=== PATIENT | female | born 1945 | race Caucasian/White ===

== ENCOUNTER 2023-03-24 06:48 | Day surgery (SDC) | payer MEDICARE, OTHER ==
[~2023-03-24] VITALS: Ht 154.9 cm; Wt 75.6 kg
[~2023-03-24 06:48] MED LIST: BUMEX 1MG TA1 MG/TA1 PO; CALCIUM CITRAT200 M2 PO; COENZYME Q-10100 M1 PO; COREG 3.123.125 MG/T PO; DOXYCYCLINE 10100 MG PO; ELIQUIS 5MG PO; FLOMAX 0.40.4 MG/CAP PO; K-DUR20 MEQ PO; LANOXIN 0.120.125 MG PO; LANOXIN 0.25M0.25 MG PO; LYSINE1000 MG PO; MAGNESIUM CITR100 MG PO; MASON NATURAL1200 MG PO; NATURAL E400 IU PO; NORCO 325 MG-51 TAB PO; PACERONE400 MG PO; PHARMASSURE ZIN50 MG PO; PRINIVIL2.5 MG PO; PROBIOTIC ACID1 EAC3 PO; PROTONIX 40MG T40 MG PO; TORADOL 10MG TA10 MG PO; VISION FORMULA1 EAC1 PO; VITAMIN B COMPL1 SGL PO; VITAMIN B12 681 TAB PO; VITAMIN D 50,1.25 MG PO; VITAMINC1000TA PO; ZOFRAN 4MG T4 MG/TAB PO
[2023-03-24 08:36] VITALS: BP 126/46; PULSE 66; TEMP 98.9
[2023-03-24] MEDS ORDERED: TYLENOL 325MG325 MG PO (08:44)
[2023-03-24] MEDS ORDERED: ACIDOPHILIS PO (08:45)
[2023-03-24] MEDS ORDERED: CORDARONE200 MG/TAB PO (08:46)
[2023-03-24] MEDS ORDERED: LEXAPRO 10MG10 MG PO (10:00)
[2023-03-24] MEDS ORDERED: TOPROL XL 25MG25 MG PO (10:01)
[2023-03-24] MEDS ORDERED: ZOFRAN 4MG T4 MG/TAB PO (10:02)
[2023-03-24] MEDS ORDERED: PROTONIX 40MG T40 MG PO (10:04)
[2023-03-24] MEDS ORDERED: NORCO 325 MG-51 TAB PO (10:05)
[2023-03-24] MEDS ORDERED: MACROBID 1100 MG/CAP PO (10:05)
[2023-03-24 11:15] VITALS: BP 105/49; PULSE 60; TEMP 99.2
[2023-03-24 11:30] VITALS: BP 102/45; PULSE 63
[2023-03-24 11:45] VITALS: BP 118/52; PULSE 70
[2023-03-24 12:00] VITALS: BP 102/44; PULSE 65
--- NOTE | 2023-03-24 17:43 | NUR ---
[id number]: PT TO RECOVERY BAY 2 FROM PACU S/P CYSTO, L URETER/LASER/STENT WITH EXTERNAL PULL STRING - SNF ORDERED TO PULL ON 03/29 A&O, PLACED ON MONITOR, VSS ON 2L NC (WEANED TO RA BY MIDDLE OF SDC STAY - VSS ON RA PRIOR TO DC) RECEIVED REPORT AND ASSUMED CARE OF PT FROM SAMUEL MA TO BEDSIDE, SNF TRANSPORT WILL TAKE PT BACK TO SNF/REHAB PROVIDED FOOD/FLUIDS, TOLERATING WELL PT HAS REMAINED A&O, NAD, VSS ON RA, TOLERATING PO, IS WITHOUT SIGNIFICANT COMPLAINT, WITH STEADY GAIT/TRANSFER BY END OF STAY IV D/C'D. D/C INSTRUCTIONS, FOLLOW UP REVIEWED AND HANDED TO PT. ALL QUESTIONS AND CONCERNS ADDRESSED TO PT SATISFACTION. REPORT CALLED TO SNF NURSERICH. TRANSPORT CALLED AND ARRANGED FOR PT P/U TAKEN TO EXIT VIA W/C WITH ALL BELONGINGS AND PAPERWORK IN HAND, CASE WORKER ASSUMED CARE OF PT.
== END 2023-03-24 12:50 ==
LOC: SDCO 06:48
DX: N20.1 Calculus of ureter (principal); Z87.440 Personal history of urinary (tract) infections
CPT/HCPCS: C1769; C2617; J0690; J1100; J2405; J2704; J3010; J7120

== ENCOUNTER 2023-10-02 10:13 | Inpatient (IN) | payer MEDICARE, OTHER ==
[2023-10-02] VITALS (98 sets, daily range): BP systolic 65–121; BP diastolic 21–53; PULSE 60; TEMP 98.4–100; O2SAT 70–100
[~2023-10-02] VITALS: Ht 154.9 cm; Wt 75.5 kg
[~2023-10-02 10:13] MED LIST changes: +ACIDOPHILIS PO; +ALDACTONE 25MG25 M1 PO; +CORDARONE200 MG/TAB PO; +KLOR-CON M2020 MEQ PO; +LASIX 40MG TABL40 MG PO; +LEXAPRO 10MG10 MG PO; +MACROBID 1100 MG/CAP PO; +TOPROL XL 25MG25 MG PO; +TYLENOL 325MG325 MG PO
[2023-10-02 10:48] LABS: COLLECTION METHOD CATHETER
[2023-10-02 11:01] LABS: URINE APPEARANCE TURBID (CLEAR/HAZY); URINE BLOOD 3+ (NEGATIVE); URINE COLOR Dark Yellow (YELLOW); URINE GLUCOSE NEGATIVE (NEGATIVE); URINE KETONE NEGATIVE (NEGATIVE); URINE NITRATE POSITIVE (NEGATIVE); URINE PROTEIN(semi-quant) 2+ (NEGATIVE)
[2023-10-02 11:01] LABS: BASO # 0.1 K/mm3 (0.0-0.2); BASO % 0.5 % (0.0-2.0); EOS % 0.1 % (0.0-4.0); GRAN # 9.4 K/mm3 (1.4-6.5); GRAN % 84.7 % (42.2-75.2); HEMOGLOBIN 10.2 g/dl (12.5-16.0); LYMPH # 0.6 K/mm3 (1.2-3.4); LYMPH % 5.4 % (20.0-51.0); MEAN CELL VOLUME 97 fl (80.0-100.0); MEAN CORPUSCULAR HEMOGLOBIN 29 pg (27-31); MEAN CORPUSCULAR HGB CONC 30 g/dl (33.0-37.0); MEAN PLATELET VOLUME 9.9 fl (7.4-10.4); MONO % 8.9 % (1.7-9.3); PLATELET COUNT 331 K/mm3 (130-400); RED BLOOD COUNT 3.47 M/mm3 (4.10-5.30); REDCELL DISTRIBUTION WIDTH-CV 17.5 % (11.5-14.5)
[2023-10-02 11:11] LABS: HEMATOCRIT 33.7 % (37.0-47.0)
[2023-10-02] MEDS ORDERED: LR 1,000 ML IV ONE (11:15)
[2023-10-02 11:18] LABS: ALBUMIN 2.2 g/dL (3.4-4.8); BILIRUBIN,TOTAL 0.7 mg/dL (0.2-1.2); CALCIUM 9.3 mg/dL (8.4-10.2); CREATININE, serum 1.22 mg/dL (0.57-1.11); POTASSIUM 5.1 mEq/L (3.5-4.5); TOTAL PROTEIN 5.6 g/dl (6.2-8.1)
[2023-10-02 11:26] LABS: URINE CALCIUM OXALATE CRYSTAL PRESENT (NOT PRESENT); URINE RBC 20-50 /hpf (0-2); URINE WBC >50 /hpf (0-2)
[2023-10-02 11:27] LABS: URINE BACTERIA MODERATE /hpf (NONE SEEN)
[2023-10-02 11:38] LABS: TROPONIN-I 0.121 ng/mL (0.00-0.033)
[2023-10-02] MEDS ORDERED: NS 1,000 ML IV ONE (11:45)
[2023-10-02] MEDS ORDERED: cefTRIAXone 1 G in Water For Injection,Sterile 10 ML IV ONE (11:45)
[2023-10-02] MEDS ORDERED: Iohexol 300 - 100 ML VIAL IV ONE (12:04)
[2023-10-02] MEDS ORDERED: NS 100 ML IV SCH (12:05)
[2023-10-02] MEDS ORDERED: *Potassium Replacement Protocol MC SCH (15:00)
--- NOTE | 2023-10-02 15:14 | NUR ---
PATIENT ARRIVED TO ICU VIA BED ACCOMPANIED BY ED RN. PATIENT IS PAIN UPON ARRIVAL BUT NO RESPIRATORY DISTRESS NOTED.
[2023-10-02] MEDS ORDERED: COLACE 100100 MG/CAP PO (15:55)
[2023-10-02] MEDS ORDERED: MIRALAX PA17 GM/Dose PO (15:57)
[2023-10-02] MEDS ORDERED: FLOMAX 0.40.4 MG/CAP PO (15:59)
[2023-10-02] MEDS ORDERED: ROXICODONE 55 MG/TAB PO (16:01)
[2023-10-02] MEDS ORDERED: TYLENOL 325MG325 MG PO (16:02)
[2023-10-02] MEDS ORDERED: Amiodarone 200 MG TAB PO SCH (16:22)
[2023-10-02] MEDS ORDERED: Escitalopram 10 MG TAB PO SCH (16:22)
[2023-10-02] MEDS ORDERED: Apixaban 5 MG TAB PO SCH (16:22)
[2023-10-02] MEDS ORDERED: Spironolactone 25 MG TAB PO SCH (16:23)
[2023-10-02] MEDS ORDERED: NS 1,000 ML IV SCH (16:30)
--- NOTE | 2023-10-02 18:02 | NUR ---
PATIENT ALERT AND ORIENTED X4. SCREAMS OUT IF TOUCHED DUE TO GENERALIZED PAIN. STAGE 2 PRESSURE SORES NOTED TO BOTTOM. GENERALIZED BRUISING PRESENT. CHAVEZ CATHETAR IN PLACE AND DRAINING CLOUDY YELLOW URINE. BED IN LOW POSITION AND CALL LIGHT WITHIN REACH.
[2023-10-02] MEDS ORDERED: Acetaminophen 325 MG TAB PO PRN (21:00)
--- NOTE | 2023-10-02 21:22 | NUR ---
PATIENT LAYING IN BED, ALERT AND CALM. IV IN RIGHT WRIST, PICC LINE TO RIGHT UPPER ARM. CHAVEZ CATHETER IN PLACE AND DRAINING PROPERLY. CAST ON LEFT ARM. NO ACUTE EVENTS.
[2023-10-03] VITALS (141 sets, daily range): BP systolic 68–146; BP diastolic 31–75; PULSE 60–75; TEMP 97.9–98.9; O2SAT 30–100
[2023-10-03 05:52] LABS: ARTERIAL BLD GAS O2 SATURATION 96.9 % (92-100); ARTERIAL BLD GAS TCO2 CT 28.9; ARTERIAL BLOOD GAS BASE EXCESS 1.6 (-2-2); ARTERIAL BLOOD GAS HCO3 27.5 meq/L (22-26); ARTERIAL BLOOD GAS PCO2 48.8 mmHg (35-45); ARTERIAL BLOOD GAS PO2 93.1 mmHg (80-100); ARTERIAL BLOOD GAS pH 7.37 (7.35-7.45)
[2023-10-03 08:25] LABS: BASO # 0.1 K/mm3 (0.0-0.2); BASO % 0.4 % (0.0-2.0); EOS # 0.1 K/mm3 (0.0-0.7); EOS % 0.8 % (0.0-4.0); GRAN # 10.9 K/mm3 (1.4-6.5); GRAN % 82.6 % (42.2-75.2); LYMPH # 0.6 K/mm3 (1.2-3.4); LYMPH % 4.5 % (20.0-51.0); MEAN CELL VOLUME 97 fl (80.0-100.0); MEAN CORPUSCULAR HGB CONC 31 g/dl (33.0-37.0); MEAN PLATELET VOLUME 9.5 fl (7.4-10.4); MONO # 1.5 K/mm3 (0.1-0.6); MONO % 11.2 % (1.7-9.3); PLATELET COUNT 323 K/mm3 (130-400); RED BLOOD COUNT 3.24 M/mm3 (4.10-5.30)
[2023-10-03 08:27] LABS: HEMATOCRIT 31.5 % (37.0-47.0); HEMOGLOBIN 9.6 g/dl (12.5-16.0); MEAN CORPUSCULAR HEMOGLOBIN 30 pg (27-31)
[2023-10-03 08:44] LABS: ALBUMIN 1.9 g/dL (3.4-4.8); CALCIUM 9.1 mg/dL (8.4-10.2); CREATININE, serum 0.82 mg/dL (0.57-1.11); MAGNESIUM 2.1 mg/dL (1.6-2.6); PHOSPHOROUS 3.3 mg/dL (2.3-4.7); POTASSIUM 4.6 mEq/L (3.5-4.5)
[2023-10-03] MEDS ORDERED: cefTRIAXone 1 G in Water For Injection,Sterile 10 ML IV SCH (09:00)
[2023-10-03] MEDS ORDERED: Amiodarone 200 MG TAB PO SCH (09:00)
--- NOTE | 2023-10-03 11:22 | NUR ---
Manager System met with patient to discuss discharge planning. Patient lives in [place] and has been at [facility] for rehab. Patient sees Dr. Cunningham for primary care. Patient advised prior to being at [facility] she was independent with ADLS and did not use any DME. Patient is currently on oxygen but stated she normally does not wear it. Patient advised she was sent to [facility] from [facility] and has been there about 10 days. Patient has DPOA-HC in chart designating her granddaughter, Leatha (ph#[phone]). SW contacted Leatha to review discharge plan to return to [facility]. Leatha advised "this isn't her first rodeo" unfortunately with her grandmother being hospitalized. Leatha advised staff could call her with any needs or questions. YUDY then contacted Juventino at [facility] and sent clinical updates via secure email. Discharge Plan: [facility]
--- NOTE | 2023-10-03 14:00 | NUR ---
PATIENT IS ALERT AND ORIENTED X4. MODERATE GENERALIZED PAIN DESCRIBED BY PATIENT. RIGHT FOREARM PUFFY - PROVIDER AWARE. IV'S ARE PATENT AND DO NOT APPEAR TO BE INFILTRATED. ULTRASOUND PERFORMED TO RULE OUT DVT - ULTRASOUND NEGATIVE. RN WRAPPING RIGHT ARM WITH ANA BANDAGES TO DECREASE SWELLING. LEVOPHED HAS REMAINED OFF SINCE 1100. PATIENT HAS EXORIATION TO COCCYX AND PERINEAL AREA - MEPILEX APPLIED TO BUTTOCKS AND BARRIER CREAM ON OTHER EXCORITATED AREAS. BED IN LOW POSITION AND CALL LIGHT WITHIN REACH. PATIENT DOES NOT HAVE ANY LINGERING QUESTIONS OR NEEDS.
--- NOTE | 2023-10-03 16:31 | NUR ---
PATIENT TRANSFERRED TO MEDICAL FLOOR BED 311 AT THIS TIME. PATIENT REPORT CALLED TO SAMUEL FRANKS, PRIOR TO TRANSFER. PATIENT NOT IN DISTRESS AT THIS TIME. ALERT AND ORIENTED X4.
[2023-10-03] MEDS ORDERED: Acetaminophen 325 MG TAB PO PRN (16:45)
[2023-10-03] MEDS ORDERED: Ondansetron 4 MG/2 ML VIAL IV PRN (16:45)
--- NOTE | 2023-10-03 17:00 | NUR ---
Pt recently arrived to the floor from ICU. Pt is alert and oriented. She has generalized pain. Aquacel to left hip, CDI. Pt has IV to her left wrist and an INT to left AC. Pts right arm is very edematous. Pt has generalized edema as well. Both hips have swelling causing skin to be somewhat tight. Nothing noted in feet at this time. Upper lung sounds clear, bowel sounds active and regular heart rate. Next Caller telehealth just came out of room. Discussed with him that pt does not have psych consult. Pt just came out of ICU 5 and consult was put in for new ICU 5. Pt informed of this as well.
--- NOTE | 2023-10-03 18:00 | NUR ---
Oriented pt to her room and educated on room service. Pts grand daughter is in the room and stated that she was here in the fall and is familiar. Grand daughter did assist with ordering dinner. Repositioned pt to her left side at this time. Discussed edema with Dr Rojo, IVF stopped at this time. Gave pt ice water. Call light within reach, bed alarm on
--- NOTE | 2023-10-03 19:17 | NUR ---
ALERTED BY PCT. PATIENT BP TAKEN SEVERAL TIMES AND REMAINS- 87/56. ADVISED PCT TO PLACE PATIENT IN [place]-ENTERED PATIENT ROOM REPEATED BP CHECK- 101/57.
--- NOTE | 2023-10-03 19:36 | NUR ---
CALL PLACED TO HOSPITALIST, KELSEY. PATIENT IS HYPOTENSIVE. DR. COLE BEDSIDE ASSESSING PATIENT. RT ARM SHOWS SIGNIFICANT 3RD SPACING/POSSIBLE INFILTERATION AT AC SITE. VORB TO BOLUS 1000ML NS IN RT WRIST IV SITE GIVEN ALONG WITH 25% ALBUMIN TO ADDRESS HYPOTENSION. KELSEY DISCUSSED POSSIBLE NEED TO PLACE PICC OR CENTRAL LINE WITH PATIENT SHE HAS Hx OF IV INFILTERATION ON RT ARM (PER DAUGHTER AND PATIENT STATEMENT).
[2023-10-03] MEDS ORDERED: Albumin (Human) 100 ML IV SCH (19:45)
--- NOTE | 2023-10-03 20:38 | NUR ---
PATIENT BP 95/44 ICU TRANSFER PENDING.
--- NOTE | 2023-10-03 22:58 | NUR ---
CALL PLACED TO [facility] TO INQUIRE ABOUT DRESSING CHANGES FOR PATIENT'S LT HIP REPLACECMENT AND LT WRIST Fx. WAS GIVEN HER ORTHOPEDIC SURGEON'S NUMBER DR. AVALOS WITH [facility] [place]- [phone]. HER PCP, WHOM SHE WAS TO FOLLOW-UP WITH WHILE AT [facility] IS DR. [facility] [place]- [phone].
[2023-10-04] VITALS (17 sets, daily range): BP systolic 103–156; BP diastolic 58–77; PULSE 66–75; TEMP 98.7–99.1; O2SAT 99–100
--- NOTE | 2023-10-04 00:12 | NUR ---
Received report from SAMUEL Larry from medical floor at 2049. Pt arrived on the unit at 2052. Pt is alert and oriented x4. Pt on 2L O2 via NC and has a escalona in place. Pt's belongings are phone and clothes. Pt had a central line placed by Radha. Time out done at 2109 and central line placement started at 2111 and ended at 2121. Will continue with pt care.
--- NOTE | 2023-10-04 00:50 | NUR ---
Gave report to SAMUEL Benavides on medical floor.
--- NOTE | 2023-10-04 00:56 | NUR ---
REPORT RECIEVED FROM NIRMAL RIVERO -RN
--- NOTE | 2023-10-04 01:07 | NUR ---
THIS ASSESSMENT COMPLETE AFTER PATIENT RETURNED FROM ICU FOLLOWING HYPOTENSIVE CRISIS AND CENTRAL LINE PLACEMENT. PATIENT IS AXO X4, however, seems anxious. VS ARE STABLE AND TELE IS NS. DENIES CHEST PAIN OR SOA. NO NEEDS STATED AT THIS TIME.
--- NOTE | 2023-10-04 01:07 | NUR ---
PATIENT ADMITTED TO ROOM 311 FROM ICU. VS ARE STABLE. PATIENT NOW HAS RT IJ CENTRAL LINE PLACED. FEET PLACED AGAINST PILLOWS TO PREVENT FOOT DROOP, PATIENT STATES SHE HAS BEEN MOSTLY IMMOBILE SINCE HER FALL 3 WEEKS AGO. SHE STATES SHE IS SO WEAK AND HASN'T MADE MUCH PROGRESS WITH PHYSICAL THERAPY AT [facility]. ICE PACK FOR LT HIP PLACED.
--- NOTE | 2023-10-04 02:25 | NUR ---
CALL PLACED TO HOSPITALISTKELSEY. PATIENT LAST BP WAS 150'S SYSTOLIC-ORDER FOR ADDITIONAL BAG ALBUMIN IN PLACE. TORB TO NOT GIVE ANY ADDITIONAL DOSES OF ALBUMIN AND TO DC ORDER GIVEN.
--- NOTE | 2023-10-04 03:00 | NUR ---
WHILE PERFORMING CHAVEZ CARE, WEEPY VESICLES WERE NOTED ON LABIA. COPIOUS WHITE DISCHARGE NOTED ON CHAVEZ TUBE AT URETHRA AN WITHIN GROIN FOLDS INTERDRY PLACED.
--- NOTE | 2023-10-04 05:18 | NUR ---
PATIENT C/O OF CONSTIPATIION STATES LAST B/M WAS 09/29. STATED SHE WAS RECIEVING MIRALAX OR METAMUCIL (CAN'T RECALL) FOR CONSTIPATION AND IT WAS VERY EFFECTIVE. COLACE WAS NOT EFFECTIVE.
[2023-10-04 06:40] LABS: BASO % 0.5 % (0.0-2.0); EOS # 0.1 K/mm3 (0.0-0.7); EOS % 1.3 % (0.0-4.0); GRAN # 6.1 K/mm3 (1.4-6.5); LYMPH # 0.5 K/mm3 (1.2-3.4); LYMPH % 6.8 % (20.0-51.0); MEAN CELL VOLUME 94 fl (80.0-100.0); MEAN CORPUSCULAR HGB CONC 31 g/dl (33.0-37.0); MONO # 0.9 K/mm3 (0.1-0.6); MONO % 11.1 % (1.7-9.3); PLATELET COUNT 260 K/mm3 (130-400); REDCELL DISTRIBUTION WIDTH-CV 16.7 % (11.5-14.5)
[2023-10-04 06:45] LABS: HEMATOCRIT 25.3 % (37.0-47.0); HEMOGLOBIN 7.9 g/dl (12.5-16.0); MEAN CORPUSCULAR HEMOGLOBIN 29 pg (27-31)
--- NOTE | 2023-10-04 07:05 | NUR ---
awake resting in bed, bedside shift report received from Makayla, RN
[2023-10-04 08:51] LABS: ALBUMIN 2.1 g/dL (3.4-4.8); CALCIUM 8.7 mg/dL (8.4-10.2); CREATININE, serum 0.72 mg/dL (0.57-1.11); POTASSIUM 4.3 mEq/L (3.5-4.5)
--- NOTE | 2023-10-04 09:30 | NUR ---
resting in bed, full assessment completed, see interventions for further info, c/o some left thigh and groin pain when moving from side to side, has moisture wicking in pannus
--- NOTE | 2023-10-04 09:50 | NUR ---
physical therapy in to work with patient, assisted her out of bed and up and into recliner, c/o pain and will medicate
--- NOTE | 2023-10-04 10:25 | NUR ---
Dr Kendall in to see patient
--- NOTE | 2023-10-04 12:15 | NUR ---
Dr Ervin and care team were in to see patient, unsure of what the orders were when she left hospital in [facility], will ask for reports to be sent to us, daughter at bedside, dressing to left hip removed, incision is CD&I without any reness or drainage is dry and will leave open to air, with two assist assited her out of chair and back into bed and repositioned to left side, she does call out in pain to left hip with movement, will plan to discontinue catheter after lunch
--- NOTE | 2023-10-04 14:04 | NUR ---
resting in bed after lunch, denies needs
--- NOTE | 2023-10-04 14:11 | NUR ---
Bulk Driver sent clinical updates to Juventino at [facility] via secure email.
--- NOTE | 2023-10-04 14:30 | NUR ---
in bed and appears to be sleeping, eyes closed, resp quiet and easy
--- NOTE | 2023-10-04 15:11 | NUR ---
resting in bed, escalona catheter discontinued, tolerated well, will call when she needs to void, pericare provided by SARAH
--- NOTE | 2023-10-04 16:46 | NUR ---
resting in bed and appears now to be sleeping, re sp quiet and easy, talked with Rachel CHACKO regarding reports received from [facility] and she4 will review with Dr Ervin what needs to be regarding f/u of left wriest fracture
--- NOTE | 2023-10-04 18:17 | NUR ---
visiting with family, has ordered supper
--- NOTE | 2023-10-04 18:59 | NUR ---
bedside shift report given to Makayla RN
[2023-10-04] MEDS ORDERED: Polyethylene Glycol 3350 17 GM PDS PO SCH (20:30)
--- NOTE | 2023-10-04 20:30 | NUR ---
Call placed to hospitalistMaureen. Patient c/o of constipation last BM on 09/29, stated that Miralax was effected while she was a patient at [facility]. torb for Miralax given
[2023-10-05] VITALS (13 sets, daily range): BP systolic 100–119; BP diastolic 62–72; PULSE 66–101; TEMP 97.9–101.5
--- NOTE | 2023-10-05 00:30 | NUR ---
PATIENT VOIDED FOLLOWING CHAVEZ REMOVAL-300ML IN BEDSIDE COMMODE ALONG WITH LARGE BROWN FORMED BM. VLADIMIR EXPERIENCED MOMENTARY DISCOMFORT WHILE PIVOTING BACK TO BED AND PANICKED SHE STATED, "MY LEG IS GOING TO GIVE OUT!". CONTINUED INSTRUCTIONS TO BEAR WEIGHT ON UNAFFECTED LEG ALONG WITH THIS NURSE AND PCT WEIGHT SUPPORT WERE GIVEN. PATIENT SUCCESSFULLY PIVOTED BACK TO BED. PATIENT NO LONGER FEARFUL AND SATISFIED WITH HER EFFORT.
[2023-10-05 07:16] LABS: BASO # 0.1 K/mm3 (0.0-0.2); BASO % 0.7 % (0.0-2.0); EOS # 0.2 K/mm3 (0.0-0.7); EOS % 2.1 % (0.0-4.0); GRAN # 5.4 K/mm3 (1.4-6.5); LYMPH # 0.6 K/mm3 (1.2-3.4); LYMPH % 9.1 % (20.0-51.0); MEAN CELL VOLUME 97 fl (80.0-100.0); MEAN CORPUSCULAR HGB CONC 30 g/dl (33.0-37.0); MONO # 0.8 K/mm3 (0.1-0.6); MONO % 10.7 % (1.7-9.3); PLATELET COUNT 275 K/mm3 (130-400); RED BLOOD COUNT 2.76 M/mm3 (4.10-5.30); REDCELL DISTRIBUTION WIDTH-CV 16.5 % (11.5-14.5)
[2023-10-05 07:17] LABS: HEMATOCRIT 26.7 % (37.0-47.0); MEAN CORPUSCULAR HEMOGLOBIN 29 pg (27-31)
[2023-10-05 07:25] LABS: ALBUMIN 1.9 g/dL (3.4-4.8); CALCIUM 9.2 mg/dL (8.4-10.2); CREATININE, serum 0.73 mg/dL (0.57-1.11); PHOSPHOROUS 3.1 mg/dL (2.3-4.7); POTASSIUM 3.5 mEq/L (3.5-4.5)
[2023-10-05] MEDS ORDERED: Potassium Bicarbonate/Citrate 20 MEQ Effervescent TAB PO SCH (08:00)
--- NOTE | 2023-10-05 11:36 | NUR ---
PT VITALS THAT HAD TEMP OF 101.5 WAS MISCHARTED IN PT CHART AND WAS MEANT TO GO ON ROOM 315'S CHART. THIS HAS SINCE BEEN FIXED AND HOSPITALIST TEAM NOTIFIED
--- NOTE | 2023-10-05 15:08 | NUR ---
Rubber Attacher contacted Velma at [facility] and faxed clinical updates. SW notified them of possible discharge tomorrow.
[2023-10-05] MEDS ORDERED: Furosemide 40 MG/4 ML VIAL IV ONE (19:30)
--- NOTE | 2023-10-05 20:30 | NUR ---
UPON SHIFT ASSESSMENT, VLADIMIR WAS IN BED AND AXO X4. AFFECT IS EXHIBITS MILD ANXIOUSNESS. LT HIP SURGICAL SITE IS WELL APPROXIMATED. SHE C/O 8/10 LT WRIST PAIN R/T TO Fx. PRN TYLENOL ADMINISTERED. DISTAL PULSES PALPABLE. VITAL SIGNS ARE WNL AND TELE IS NS PACED. PATIENT VOICED CONCERNS ABOUT AMBULATING TO COMMODE. EDUCATION WAS PROVIDED ON MOBILITY AND HEALING TIMES. CALL LIGHT WITHIN REACH BEDALARM ON.
[2023-10-06] VITALS: BP 119/71; PULSE 71; TEMP 98
[2023-10-06] MEDS ORDERED: LORazepam 0.5 MG TAB PO ONE (00:30)
--- NOTE | 2023-10-06 00:42 | NUR ---
CALL PLACED TO HOSPITALISTFRANCISCO. PATIENT BECOMES DISTRESSED WHEN PIVOTING TO BEDSIDE COMMODE-PRN PAIN MEDS ARE ON BOARD-AND BEGINS TO CRY AND OCCASIONALLY YELLS, BASELINE TREMORS INCREASE. HER AFFECT BECOMES ANXIOUS WITH ANY MENTION OF AMBULATION. EDUCATION WAS PROVIDED ON THE NEED TO MAINTAIN MOBILITY. TORB FOR 0.5MG PO ATIVAN GIVEN.
[2023-10-06 01:01] VITALS: BP_SYST 119
--- NOTE | 2023-10-06 02:34 | NUR ---
PATIENT REFUSES ATIVAN FOR ANXIETY, STATED THAT THERAPEUTIC COMMUNICATION WITH THIS NURSE EFFECTIVE FOR NOW. EDUCATION PROVIDED ON COPING STRATEGIES-MOBILITY AND BODY AWARENESS. WILL TRY TO MAINTAIN FREQUENT THERAPEUTIC INTERACTIONS, HOWEVER, TIME MAY NOT ALLOW.
[2023-10-06 04:00] VITALS: BP 126/74; PULSE 76; TEMP 98.2
[2023-10-06 05:13] VITALS: BP_SYST 126
[2023-10-06] MEDS ORDERED: MACROBID 1100 MG/CAP PO (07:14)
[2023-10-06] MEDS ORDERED: CIPRO 500MG TA500 MG PO (07:15)
[2023-10-06 07:40] LABS: BASO # 0.1 K/mm3 (0.0-0.2); BASO % 1.2 % (0.0-2.0); EOS # 0.3 K/mm3 (0.0-0.7); GRAN # 4.3 K/mm3 (1.4-6.5); LYMPH # 0.5 K/mm3 (1.2-3.4); MEAN CELL VOLUME 94 fl (80.0-100.0); MEAN CORPUSCULAR HGB CONC 31 g/dl (33.0-37.0); MEAN PLATELET VOLUME 9.9 fl (7.4-10.4); MONO # 0.8 K/mm3 (0.1-0.6); MONO % 12.5 % (1.7-9.3); PLATELET COUNT 292 K/mm3 (130-400); REDCELL DISTRIBUTION WIDTH-CV 16.5 % (11.5-14.5)
[2023-10-06 07:44] LABS: HEMATOCRIT 27.2 % (37.0-47.0); HEMOGLOBIN 8.4 g/dl (12.5-16.0); MEAN CORPUSCULAR HEMOGLOBIN 29 pg (27-31)
--- NOTE | 2023-10-06 07:45 | NUR ---
Patient laying in bed, A&Ox4. VSS. IV CDI. LF hip incision CDI. LF arm in sling. Arms elevated on pillows. Denies pain when not moving. Call light within reach. Bed alarm on
[2023-10-06 07:48] VITALS: BP 112/68; PULSE 69; TEMP 98.8
[2023-10-06 08:08] LABS: ALBUMIN 2.1 g/dL (3.4-4.8); CALCIUM 9.2 mg/dL (8.4-10.2); CREATININE, serum 0.78 mg/dL (0.57-1.11); POTASSIUM 3.7 mEq/L (3.5-4.5)
[2023-10-06] MEDS ORDERED: Potassium Bicarbonate/Citrate 20 MEQ Effervescent TAB PO SCH (08:45)
[2023-10-06] MEDS ORDERED: Furosemide 40 MG/4 ML VIAL IV ONE (09:30)
[2023-10-06] MEDS ORDERED: Nitrofurantoin (Mono/Macro) 100 MG CAP PO ONE (09:45)
[2023-10-06] MEDS ORDERED: Ciprofloxacin 500 MG TAB PO ONE (09:45)
[2023-10-06 12:30] VITALS: BP 117/70; PULSE 71; TEMP 98.7
--- NOTE | 2023-10-06 14:45 | NUR ---
RT IJ removed, sterile process by the nurse. Sutures removed. Tip intact. Gauze and tegaderm applied. Nurse held pressure for 15 minutes at the bedside. PAtient tolerated well. Patient positioned for comfort. Call light within reach
--- NOTE | 2023-10-06 15:43 | NUR ---
Sports Fitness And Wellness Director attended clinical rounds with the team and patient is ready for discharge today, pending recommendations from [facility]'s Ortho team on patient's wrist. SW met with patient to present and review IM. Patient verbalized understanding and provided signature. SW placed form in chart then provided copy to patient. Hospitalist contacted YUDY to advise Ortho at [facility] will no longer follow patient. Plan is for an xray prior to discharge, then follow up with local ortho provider. YUDY contacted Juventino at [facility] to provide update. SW also provided discharge orders and transport time was set for 1600. SW contacted patient's granddaughter, Leatha with update. Discharge Plan: [facility]
--- NOTE | 2023-10-06 16:11 | NUR ---
Report called to Joanna. Patient transfered to the wheelchair with 2 assist in hospital gown. Discharge paperwork with the transporter. No further needs expressed
== END 2023-10-06 16:12 | DRG 698 ==
LOC: COL.ER 10:13 → ICU 13:15 → MEDICAL 10-03 16:50 → ICU 10-03 20:57 → MEDICAL 10-04 02:00
PROVIDERS: Emergency Medicine; Internal Medicine; ADMIT Internal Medicine
PROC: 02HV33Z Insertion of Infusion Device into Superior Vena Cava, Percutaneous Approach (ICD-10-PCS; principal; 2023-10-03)
DX: T83.511A Infection and inflammatory reaction due to indwelling urethral catheter, initial encounter (principal); A41.9 Sepsis, unspecified organism; G93.41 Metabolic encephalopathy; I21.A1 Myocardial infarction type 2; J96.01 Acute respiratory failure with hypoxia; R65.21 Severe sepsis with septic shock; I42.8 Other cardiomyopathies; N17.9 Acute kidney failure, unspecified; I50.22 Chronic systolic (congestive) heart failure; J98.11 Atelectasis; J90 Pleural effusion, not elsewhere classified; I31.39 Other pericardial effusion (noninflammatory); N39.0 Urinary tract infection, site not specified; E04.1 Nontoxic single thyroid nodule; I95.9 Hypotension, unspecified; I25.10 Atherosclerotic heart disease of native coronary artery without angina pectoris; D64.9 Anemia, unspecified; N83.201 Unspecified ovarian cyst, right side; B96.5 Pseudomonas (aeruginosa) (mallei) (pseudomallei) as the cause of diseases classified elsewhere; B95.2 Enterococcus as the cause of diseases classified elsewhere; I27.20 Pulmonary hypertension, unspecified; Y84.6 Urinary catheterization as the cause of abnormal reaction of the patient, or of later complication, without mention of misadventure at the time of the procedure; F41.9 Anxiety disorder, unspecified; Z96.643 Presence of artificial hip joint, bilateral; L89.152 Pressure ulcer of sacral region, stage 2; I08.1 Rheumatic disorders of both mitral and tricuspid valves; I48.91 Unspecified atrial fibrillation; Z91.040 Latex allergy status; Z91.011 Allergy to milk products; Z91.013 Allergy to seafood; Z91.018 Allergy to other foods; Z95.0 Presence of cardiac pacemaker; Z79.899 Other long term (current) drug therapy; Z79.01 Long term (current) use of anticoagulants; Z91.014 Allergy to mammalian meats
CPT/HCPCS: A4314; J0696; J1940; J2543; J7030; J7060; P9047; Q3014; Q9967

== ENCOUNTER → 2023-11-12 | Outpatient (REF) | payer MEDICARE, OTHER ==
[~2023-11-12] MED LIST changes: +CIPRO 500MG TA500 MG PO; +COLACE 100100 MG/CAP PO; +MIRALAX PA17 GM/Dose PO; +ROXICODONE 55 MG/TAB PO
== END ==
LOC: ZCOL.LAB 09:35
DX: N39.0 Urinary tract infection, site not specified (principal)